=== PATIENT | female | born 1990 | race Hispanic/Latino ===

== ENCOUNTER 2020-10-24 06:38 | Emergency (ER) | payer SELFPAY ==
[~2020-10-24] VITALS: Ht 167.6 cm; Wt 158.8 kg
[2020-10-24] MEDS ORDERED: FAMOTIDINE 20 MG/2 ML VIAL IV STA (07:29)
[2020-10-24] MEDS ORDERED: DONNATAL/LIDOCAINE/MAALOX 30 ML SUSP PO ONE (07:30)
[2020-10-24] MEDS ORDERED: FAMOTIDINE 20 MG/2 ML VIAL IV ONE (07:42)
[2020-10-24] MEDS ORDERED: BELLADONNA ALK/PHENOBARBITAL 5 ML UDC ONE (07:42)
[2020-10-24] MEDS ORDERED: LIDOCAINE VISC 2% SOLN 15 ML UDC ONE (07:42)
[2020-10-24] MEDS ORDERED: MAGNESIUM/ALUMINUM/SIMETHICONE 30 ML UDC ONE (07:42)
[2020-10-24] MEDS ORDERED: BELLADONNA ALK/PHENOBARBITAL 5 ML UDC PO ONE (07:45)
[2020-10-24] MEDS ORDERED: LIDOCAINE VISC 2% SOLN 15 ML UDC PO ONE (07:45)
[2020-10-24] MEDS ORDERED: MAGNESIUM/ALUMINUM/SIMETHICONE 30 ML UDC PO ONE (07:45)
[2020-10-24 08:23] VITALS: BP 100/65
== END 2020-10-24 08:20 | disposition home or self-care (01) ==
LOC: FSED 07:16
DX: R10.13 Epigastric pain (principal); R73.9 Hyperglycemia, unspecified; D64.9 Anemia, unspecified
CPT/HCPCS: 80053; 80076; 81003; 81025; 82553; 84484; 85025; 93005; 96374; 99283

== ENCOUNTER 2021-12-01 20:31 | Emergency (ER) | payer SELFPAY ==
[~2021-12-01] VITALS: Ht 167.6 cm; Wt 156.5 kg
[2021-12-01] MEDS ORDERED: IBUPROFEN 600 MG TAB PO STA (22:12)
[2021-12-01] MEDS ORDERED: LORAZEPAM 0.5 MG TAB PO ONE (22:15)
[2021-12-01] MEDS ORDERED: HYDROXYZINE HCL25 MG PO (22:17)
[2021-12-01] MEDS ORDERED: IBUPROFEN 600 MG TAB ONE (22:25)
[2021-12-01] MEDS ORDERED: LORAZEPAM 0.5 MG TAB ONE (22:26)
== END 2021-12-01 23:14 | disposition home or self-care (01) ==
LOC: FSED 20:44
DX: F41.0 Panic disorder [episodic paroxysmal anxiety] (principal); Z63.79 Other stressful life events affecting family and household; H93.12 Tinnitus, left ear; R07.9 Chest pain, unspecified; F17.200 Nicotine dependence, unspecified, uncomplicated; Z79.899 Other long term (current) drug therapy
CPT/HCPCS: 93005; 99283

== ENCOUNTER 2022-12-07 23:50 | Emergency (ER) | payer OTHER ==
[~2022-12-07] VITALS: Ht 160 cm; Wt 167.4 kg
[~2022-12-07 23:50] MED LIST: HYDROXYZINE HCL25 MG PO
[2022-12-08] MEDS ORDERED: KETOROLAC TROMETHAMINE 60 MG/2 ML VIAL IM STA (00:17)
[2022-12-08] MEDS ORDERED: KETOROLAC TROMETHAMINE 60 MG/2 ML VIAL ONE (00:31)
[2022-12-08] MEDS ORDERED: ULTRAM 50MG50 MG PO (01:55)
[2022-12-08 02:55] VITALS: BP 110/60; PULSE 76; RESP 18; TEMP 98; O2SAT 98
== END 2022-12-08 02:55 | disposition home or self-care (01) ==
LOC: EDBD 23:50 → FSED 12-08 00:09
DX: R07.89 Other chest pain (principal); M54.2 Cervicalgia; R10.9 Unspecified abdominal pain; M25.552 Pain in left hip; V43.52XA Car driver injured in collision with other type car in traffic accident, initial encounter; Y92.488 Other paved roadways as the place of occurrence of the external cause; D64.9 Anemia, unspecified; E66.01 Morbid (severe) obesity due to excess calories
CPT/HCPCS: 71250; 72125; 74176; 81025; 96372; 99283; J1885